=== PATIENT | male | born 1950 ===

== ENCOUNTER 2018-01-03 15:20 | Emergency (ER) | payer OTHER, SELFPAY ==
[2018-01-03] VITALS (30 sets, daily range): BP systolic 131–168; BP diastolic 66–101; PULSE 61–80; RESP 9–20; TEMP 36.6–36.9; O2SAT 90–96
--- NOTE | 2018-01-03 15:39 | DI.RPTCT_ITS ---
SYMPTOM/DIAGNOSIS: SYNCOPE, HEADACHE, HEAT EXHAUSTION NONCONTRAST HEAD CT: A noncontrast enhanced examination was performed. There is no evidence of an intra/extra-axial hemorrhage or significant white matter disease. There are mild atrophic changes. The ventricles are intact. There is no skull fracture. The soft tissues are unremarkable. The sinuses are unremarkable. There is no evidence of a mastoid effusion. SUMMARY: No acute abnormality is demonstrated.
[2018-01-03 15:55] LABS: Abs Immature Grans 0.01 k/cumm (0.0-0.09); Absolute Basophil Count 0.05 k/cumm (0.0-0.2); Absolute Eosinophil Count 0.27 k/cumm (0.0-0.7); Absolute Lymphocyte Count 1.93 k/cumm (1.2-3.4); Absolute Monocyte Count 0.56 k/cumm (0.11-0.7); Basophils % 0.8; Eosinophils % 4.3; HCT 45.5 % (40.0-50.0); HGB 15.2 g/dL (13.5-17.5); Immature Grans % 0.2; Lymphocytes % 30.5; Mean Corp. HGB Concentration 33.4 g/dL (32.0-36.0); Mean Corpuscular Hemoglobin 30.8 pg (27.0-33.0); Mean Corpuscular Volume 92.1 fL (80-95); Mean Platelet Volume 9.4 fL (8.0-11.0); Monocytes % 8.9; Neutrophils % 55.3; Platelet Count 253 x1000/uL (130-400); RBC 4.94 m/cumm (4.50-6.00); RBC Distribution Width 13.2 % (11.8-14.1); White Blood Cell Count 6.32 k/cumm (4.4-10.8)
[2018-01-03 16:07] LABS: Albumin 4.3 g/dL (3.4-5.0); BUN 14 mg/dL (7-18); Chloride 104 mmol/L (98-107); Potassium 3.9 mmol/L (3.5-5.1); Sodium 139 mmol/L (136-145)
--- NOTE | 2018-01-03 16:25 | ED.GENADUL ---
Disposition Clinical Impression: Intolerance to heat, Heat exhaustion Disposition: HOME Condition: Improving Instructions: Heat Exhaustion (ED) Additional Instructions: Return immediately to the emergency department for any new or worsening symptoms. Otherwise continue stay well-hydrated throughout her workday, keep your windows rolled down, and stay as cool as possible taking breaks from the heat if needed. Follow-up with your primary care provider for reassessment as needed. Referrals: Primary Care Provider [Outside] (Follow-up with your primary care provider in [facility] as needed) Medical Decision Making - Lab Data Laboratory Tests Abnormal Lab Results 01/03/18 01/03/18 01/03/18 15:45 15:45 16:25 WBC 6.32 RBC 4.94 Hgb 15.2 Hct 45.5 MCV 92.1 MCH 30.8 MCHC 33.4 RDW 13.2 Plt Count 253 MPV 9.4 Immature Gran % 0.2 Neutrophils % 55.3 Lymphocytes % 30.5 Monocytes % 8.9 Eosinophils % 4.3 Basophils % 0.8 Absolute Neutrophils 3.50 Absolute Lymphocytes 1.93 Absolute Monocytes 0.56 Absolute Eosinophils 0.27 Absolute Basophils 0.05 Sodium 139 Potassium 3.9 Chloride 104 Carbon Dioxide 26.4 Anion Gap 8.6 BUN 14 Creatinine 1.10 Estimated GFR/1.73 m2 >= 60.00 Glucose 95 Calcium 9.1 Magnesium 2.0 Total Bilirubin 0.4 AST 25 ALT 25 Alkaline Phosphatase 86 Troponin I < 0.02 Total Protein 7.9 Albumin 4.3 TSH 1.49 Urine Color Yellow Urine Clarity Clear Urine pH 6.5 Ur Specific [place] 1.010 Urine Protein Negative Urine Ketones Negative Urine Blood Negative Urine Nitrite Negative Urine Bilirubin Negative Urine Urobilinogen 0.2 Ur Leukocyte Esterase Negative Urine Glucose Negative Results reviewed for labs ordered during visit: Yes - EKG Data EKG shows normal: sinus rhythm Interpretation: other (EKG read and interpreted by Dr. Ez Patel.) - Radiology Data Radiology results: report reviewed, image reviewed - Medical Decision Making Patient presenting to the emergency department for chief complaint of somnolence due to heat intolerance. Patient states that he normally is very intolerant to heat and due to the extreme heat he pulled over because he was not feeling well and put his head down and must have fallen asleep. Patient states headache he has had intermittently but states that that is normal when he is in the heat quite often. Patient denies any chest pain, shortness of breath, syncope, loss of consciousness. Given that patient is complaining of headache do plan on doing head CT but neurological exam is normal and unremarkable. EKG reviewed with Dr. Ez Patel and shows normal sinus rhythm and otherwise nondiagnostic no STEMI. Plan to review labs and specifically TSH given patient stated severe heat intolerance with previous episodes similar to this. EMS started 1 L of normal saline prior to arrival which I feel is appropriate to finish this fluid before reassessment Review of head CT and radiologist interpretation shows no acute findings. Patient labs were reviewed and show no significant abnormalities and no worrisome findings of thyroid study, no severe dehydration or electrolyte abnormalities. Patient reassessed and stated that he is feeling slightly better after the fluids but still not 100%. Plan to give patient 600 mg ibuprofen and 500 mL's more of saline and reassess. I feel that this is more of a heat intolerance given that patient has no syncope, no loss of consciousness and previous history of not feeling well with extreme heat which has been occurring today. Did speak with patient's who is now present in the emergency department and she states that patient has long ongoing history of heat intolerance and getting extremely fatigued and worn out with mild headaches anytime he is exposed to the extreme heat which is happened multiple times this summer. She also reports that patient's work vehicle does not have any air conditioning present and it and attributes some of his condition to that. I feel again that this is reassuring given stating multiple episodes over many years of similar heat intolerances with headache occurring alongside that. Orthostatic vitals were taken and showed no significant areas of concern and patient stated near full resolution of his symptoms. Given this I feel that patient is suffering from some level of heat exhaustion and we discussed ways that he could attempt to manage this while at work. Patient encouraged to return immediately for any new or worsening symptoms otherwise follow-up with his primary care as needed. History of Present Illness - General Chief complaint: Dizzy/Sync Stated complaint: CALEX Time Seen by Provider: 01/03/18 15:22 Source: patient, RN notes reviewed Mode of arrival: EMS Limitations: no limitations - History of Present Illness Initial comments: Patient reports today he was struggling with the heat and did not feel well. He states that when he began not feeling well he pulled over to put his head down due to a mild headache and fell asleep. Patient denies any loss of consciousness and remembers putting his head down. EMS was called to the scene due to patient having his head over the wheel and remembers them waking him up. Patient denies any injury or trauma but does state a headache. Patient states that he has a normal intolerance to heat and over the past couple days has had headache and felt more weak and tired. Patient denies any chest pain, shortness of breath, difficulty breathing. Onset/Timin -: hour(s) Location: head Severity scale (1-10): 8 Quality: aching Consistency: constant Improves with: none Worsens with: none Associated Symptoms: denies other symptoms Treatments Prior to Arrival: none - Related Data Lisinopril 10 mg PO DAILY 01/03/18 Allergies Allergy/AdvReac Type Severity Reaction Status Date / Time cat dander Allergy Unverified 01/03/18 15:39 Review of Systems Constitutional: denies: chills, fever, malaise Eyes: denies: vision change Respiratory: denies: cough, shortness of breath Cardiovascular: denies: chest pain, palpitations, syncope Endocrine: intolerance to heat Gastrointestinal: denies: abdominal pain, nausea, vomiting, diarrhea Neurological: as per HPI, headache. denies: weakness, numbness, paresthesias, confusion Psychiatric: denies: anxiety Past Medical History - Past Medical History Medical history: hypertension Surgical history: other (Right rotator cuff, bilateral hip replacement) Family history: diabetes - Social History Smoking status: never smoker Alcohol use: occasionally Drug use: none Living Situation: lives with family General Exam - General Limitations: no limitations, other (Patient is hearing impaired but does have hearing aids in place so no limitations with assistive devices) General appearance: alert, in no apparent distress - Head Head exam: Present: atraumatic, normocephalic - Eye Eye exam: Present: normal apperance, PERRL, EOMI. Absent: scleral icterus, conjunctival injection, nystagmus Pupils: Present: normal accommodation - ENT ENT exam: Present: normal exam, normal orophraynx, mucous membranes moist, normal external ear exam - Neck Neck exam: Present: normal inspection, full ROM. Absent: tenderness, meningismus - Respiratory Respiratory exam: Present: normal lung sounds bilaterally. Absent: respiratory distress, wheezes, rales, rhonchi, stridor, decreased breath sounds - Cardiovascular Cardiovascular Exam: Present: regular rate, normal rhythm, normal heart sounds. Absent: tachycardia, systolic murmur, diastolic murmur, rubs, gallop - Neurological Exam Neurological exam: Present: alert, oriented X3, CN II-XII intact, normal gait. Absent: altered, motor sensory deficit - Expanded Neurological Exam No standard instances Neurological exam: Absent: ataxia Patient oriented to: Present: person, place, time Speech: Present: fluid speech Cerebellar function: Finger to Nose: Normal Sensory exam: Upper Extremity Light Touch: Normal, Lower Extremity Light Touch: Normal Motor strength exam: RUE: (5), LUE: (5), RLE: (5), LLE: (5) Best Eye Response ([place]): (4) open spontaneously Best Motor Response ([place]): (6) obeys commands Best Verbal Response ([place]): (5) oriented - Psychiatric Psychiatric exam: Present: normal affect, normal mood - Skin Skin exam: Present: warm, dry, intact, normal color Course Vital Signs - 24 hr 01/03/18 01/03/18 01/03/18 15:25 15:26 15:30 Temperature 36.9 C Pulse 72 71 Respiratory 18 17 Rate Blood Pressure 168/101 168/101 Pulse Oximetry 96 95 95 01/03/18 01/03/18 01/03/18 15:31 15:37 15:40 Temperature Pulse 69 Respiratory 13 18 13 Rate Blood Pressure 159/95 Pulse Oximetry 95 94 L 01/03/18 01/03/18 01/03/18 15:46 15:57 15:58 Temperature Pulse 63 63 Respiratory 9 L 15 13 Rate Blood Pressure 146/83 150/77 Pulse Oximetry 94 L 94 L 93 L 01/03/18 01/03/18 01/03/18 16:00 16:01 16:10 Temperature Pulse 66 Respiratory 14 17 15 Rate Blood Pressure 149/79 Pulse Oximetry 93 L 94 L 94 L 01/03/18 16:16 Temperature Pulse 65 Respiratory 16 Rate Blood Pressure 142/95 Pulse Oximetry
--- NOTE | 2018-01-03 16:32 | DI.VRAD_ITS ---
EXAM: CT Head Without Intravenous Contrast CLINICAL HISTORY: 67 years old, male; Signs and symptoms; Syncope and collapse TECHNIQUE: Axial computed tomography images of the head/brain without intravenous contrast. Coronal and sagittal reformatted images were created and reviewed. COMPARISON: No relevant prior studies available. FINDINGS: Brain: Unremarkable. No hemorrhage. No significant white matter disease. No edema. Ventricles: There is mild, diffuse involutional change with mild associated ventriculomegaly. Bones/joints: Unremarkable. No acute fracture. Soft tissues: Unremarkable. Sinuses: Unremarkable as visualized. No acute sinusitis. Mastoid air cells: Unremarkable as visualized. No mastoid effusion. IMPRESSION: No acute findings. Dictated and Authenticated by: Eliecer Quiroga MD. Ordering:ROMAIN CHAPA MD
[2018-01-03 16:35] LABS: Bilirubin Negative (Negative); Blood Negative (Negative); Clarity Clear; Glucose Negative (Negative); Ketones Negative (Negative); Leukocyte Esterase Negative (Negative); Nitrite Negative (Negative); Urobilinogen 0.2 EU/dL (Up TO 0.2); pH 6.5 (5-8)
[2018-01-03 16:38] LABS: ALT 25 U/L (12-78); AST 25 U/L (15-37); Alkaline Phosphatase 86 U/L (46-116); Anion Gap 8.6 mmol/L (3-11); Bilirubin, Total 0.4 mg/dL (0.2-1.0); CO2 26.4 mmol/L (21.0-32.0); Calcium 9.1 mg/dL (8.5-10.1); Glucose 95 mg/dL (70-100); TSH 1.49 uIU/mL (0.358-3.74); Total Protein 7.9 g/dL (6.4-8.2); Troponin I < 0.02 ng/mL (0.00-0.06)
[2018-01-03] MEDS: Ibuprofen 600 MG TAB PO (16:53)
[2018-01-03] MEDS: Normal Saline 500 ML IV (16:59)
--- NOTE | 2018-01-04 11:11 | NUR.NOTE ---
Nursing Note: Patient called requesting a work release note. WINSTON Demarco reviewed chart and did a work release for patient. Release was faxed to [phone]. Evelyn Vizcaino
== END 2018-01-03 18:04 | disposition home or self-care (01) ==
PROVIDERS: Nurse Practitioner Family; Emergency Provider Student in an Organized Health Care Education/Training Program
DX: T67.4XXA Heat exhaustion due to salt depletion, initial encounter (principal); I10 Essential (primary) hypertension
CPT/HCPCS: 36415; 80053; 93005; 96360; 99284; 70450; 81003; 83735; 84443; 84484; 85025; 93010